=== PATIENT | male | born 1980 | race Caucasian/White ===

== ENCOUNTER 2017-05-31 15:47 | Emergency (ER) | payer OTHER ==
[~2017-05-31] VITALS: Ht 167.6 cm; Wt 91.6 kg
[2017-05-31 18:48] VITALS: BP 151/94
== END 2017-05-31 19:33 | disposition home or self-care (01) ==
LOC: ED 15:47
DX: S01.111A Laceration without foreign body of right eyelid and periocular area, initial encounter (principal); S43.402A Unspecified sprain of left shoulder joint, initial encounter; S20.211A Contusion of right front wall of thorax, initial encounter; E11.9 Type 2 diabetes mellitus without complications; V59.3XXA Occupant (driver) (passenger) of pick-up truck or van injured in unspecified nontraffic accident, initial encounter; Y99.8 Other external cause status; Y93.89 Activity, other specified; Y92.89 Other specified places as the place of occurrence of the external cause
CPT/HCPCS: 90715